=== PATIENT | male | born 1985 | race American Indian/Alaskan Native ===

== ENCOUNTER 2017-05-27 05:12 | Emergency (ER) | payer SELFPAY ==
[2017-05-27 05:35] VITALS: BP 157/109
[2017-05-27 06:30] LABS: Basophils % (Auto) 0.7 % (0.0-1.8); Eosinophils % (Auto) 0.8 % (0.0-4.3); Hematocrit 43.9 % (35.5-45.6); Hemoglobin 14.3 gm/dl (11.8-15.2); Mean Corpuscular HGB Conc 33 % (32-34); Mean Corpuscular Hemoglobin 29 pg (28-32); Mean Corpuscular Volume 90 fl (84-94); Platelet Count 185 K/mm3 (140-440); Red Cell Distribution Width 14.6 % (13.2-15.2); White Blood Count 8.5 K/mm3 (4.5-11.0)
[2017-05-27 06:49] LABS: Blood Urea Nitrogen 13 mg/dL (9-20); Calcium 8.8 mg/dL (8.4-10.2); Carbon Dioxide 24 mmol/L (22-30); Glucose 123 mg/dL (75-100)
[2017-05-27 06:50] LABS: Anion Gap 18 mmol/L; Chloride 99.3 mmol/L (98-107); Potassium 3.8 mmol/L (3.6-5.0); Sodium 137 mmol/L (137-145)
[2017-05-27] MEDS ORDERED: NORCO 5/325 PO ONE (07:19)
[2017-05-27] MEDS ORDERED: COLCRYS PO ONE (07:19)
[2017-05-27] MEDS ORDERED: TORADOL IM ONE (07:19)
[2017-05-27] MEDS ORDERED: DECADRON IM ONE (07:19)
--- NOTE | 2017-05-27 07:21 | Emergency Department Report ---
ED General Adult HPI - General Chief complaint: Extremity Problem,Nontraumatic Stated complaint: GOUT PAIN Time Seen by Provider: 05/27/17 07:09 Source: patient Mode of arrival: Wheelchair Limitations: No Limitations - History of Present Illness Initial comments: Patient comes into the ER today with complaints of right ankle and foot pain for the past one day. Patient denies any injury. States that he is sure that it is a gout flareup. Patient states that it has been approximately 2 years since his last flareup. Patient states he does not take anything on a regular basis for his gout. Does note that his father has history of gout as well. Patient denies any fever, body aches, chills. He states the pain is worse with anything touching his right ankle and foot. Patient unable to ambulate due to pain. - Related Data Previous Rx's Medication Instructions Recorded Last Taken Type Acetaminophen/Codeine [Tylenol 1 tab PO Q6H PRN #20 tab 05/27/17 Unknown Rx /Codeine # 3 tab] Colchicine [Colcrys] 0.6 mg PO BID PRN #10 tab 05/27/17 Unknown Rx Indomethacin 50 mg PO TID PRN #30 capsule 05/27/17 Unknown Rx Allergies Allergy/AdvReac Type Severity Reaction Status Date / Time No Known Allergies Allergy Verified 05/27/17 05:31 ED Review of Systems ROS: Stated complaint: GOUT PAIN Other details as noted in HPI Constitutional: denies: chills, fever Eyes: denies: eye pain, eye discharge, vision change ENT: denies: ear pain, throat pain Respiratory: denies: cough, shortness of breath, wheezing Cardiovascular: denies: chest pain, palpitations Endocrine: no symptoms reported Gastrointestinal: denies: abdominal pain, nausea, diarrhea Genitourinary: denies: urgency, dysuria Musculoskeletal: arthralgia. denies: back pain, joint swelling Skin: denies: rash, lesions Neurological: denies: headache, weakness, paresthesias Psychiatric: denies: anxiety, depression Hematological/Lymphatic: denies: easy bleeding, easy bruising ED Past Medical Hx - Past Medical History Previous Medical History?: Yes Hx Hypertension: Yes Hx Arthritis: Yes (Gout) Additional medical history: GOUT - Surgical History Past Surgical History?: No - Social History Smoking Status: Current Every Day Smoker Substance Use Type: None - Medications Home Medications: Home Medications Medication Instructions Recorded Confirmed Last Taken Type Acetaminophen/Codeine [Tylenol 1 tab PO Q6H PRN #20 tab 05/27/17 Unknown Rx /Codeine # 3 tab] Colchicine [Colcrys] 0.6 mg PO BID PRN #10 tab 05/27/17 Unknown Rx Indomethacin 50 mg PO TID PRN #30 capsule 05/27/17 Unknown Rx ED Physical Exam - General Limitations: No Limitations General appearance: alert, in no apparent distress - Head Head exam: Present: atraumatic, normocephalic - Eye Eye exam: Present: normal appearance - ENT ENT exam: Present: mucous membranes moist - Neck Neck exam: Present: normal inspection - Respiratory Respiratory exam: Present: normal lung sounds bilaterally. Absent: respiratory distress - Cardiovascular Cardiovascular Exam: Present: regular rate, normal rhythm. Absent: systolic murmur, diastolic murmur, rubs, gallop - GI/Abdominal GI/Abdominal exam: Present: soft, normal bowel sounds - Rectal Rectal exam: Present: deferred - Extremities Exam Extremities exam: Present: tenderness (right lateral ankle tenderness), normal capillary refill, joint swelling (right ankle). Absent: full ROM (Limited range of motion of right ankle secondary to pain), pedal edema, calf tenderness - Back Exam Back exam: Present: normal inspection - Neurological Exam Neurological exam: Present: alert, oriented X3, CN II-XII intact, reflexes normal. Absent: motor sensory deficit - Psychiatric Psychiatric exam: Present: normal affect, normal mood - Skin Skin exam: Present: warm, dry, intact, normal color. Absent: rash ED Course Vital Signs 05/27/17 05:31 Temperature 97.9 F Pulse Rate 74 Respiratory 22 Rate Blood Pressure 157/109 O2 Sat by Pulse 97 Oximetry ED Medical Decision Making - Lab Data Result diagrams: 05/27/17 06:11 05/27/17 06:11 Lab Results 05/27/17 05/27/17 Range/Units 06:11 06:11 WBC 8.5 (4.5-11.0) K/mm3 RBC 4.90 (3.65-5.03) M/mm3 Hgb 14.3 (11.8-15.2) gm/dl Hct 43.9 (35.5-45.6) % MCV 90 (84-94) fl MCH 29 (28-32) pg MCHC 33 (32-34) % RDW 14.6 (13.2-15.2) % Plt Count 185 (140-440) K/mm3 Lymph % (Auto) 17.6 (13.4-35.0) % Loup % (Auto) 5.5 (0.0-7.3) % Eos % (Auto) 0.8 (0.0-4.3) % Baso % (Auto) 0.7 (0.0-1.8) % Lymph # 1.5 (1.2-5.4) K/mm3 Loup # 0.5 (0.0-0.8) K/mm3 Eos # 0.1 (0.0-0.4) K/mm3 Baso # 0.1 (0.0-0.1) K/mm3 Seg Neutrophils % 75.4 H (40.0-70.0) % Seg Neutrophils # 6.5 (1.8-7.7) K/mm3 Sodium 137 (137-145) mmol/L Potassium 3.8 (3.6-5.0) mmol/L Chloride 99.3 (98-107) mmol/L Carbon Dioxide 24 (22-30) mmol/L Anion Gap 18 mmol/L BUN 13 (9-20) mg/dL Creatinine 1.0 (0.8-1.5) mg/dL Estimated GFR > 60 ml/min BUN/Creatinine Ratio 13.00 % Glucose 123 H (75-100) mg/dL Calcium 8.8 (8.4-10.2) mg/dL - Medical Decision Making Patient is nontoxic and hemodynamically stable. Based on history and physical exam, I do believe patient may be having a gout flareup in the ER today. Patient does not have physical exam consistent with any injury. Patient was given crutches in the ER to help with ambulation while inflammation subsides. Patient is in aggrement with treatment plan and is stable for discharge. Critical care attestation.: If time is entered above; I have spent that time in minutes in the direct care of this critically ill patient, excluding procedure time. ED Disposition Clinical Impression: Gout, Right ankle pain Disposition: TO HOME OR SELFCARE Is pt being admited?: No Does the pt Need Aspirin: No Condition: Good Instructions: Crutch Instructions (ED), Acute Gouty Arthritis (ED) Prescriptions: Acetaminophen/Codeine [Tylenol /Codeine # 3 tab] 1 tab PO Q6H PRN #20 tab PRN Reason: Pain Colchicine [Colcrys] 0.6 mg PO BID PRN #10 tab PRN Reason: other Indomethacin 50 mg PO TID PRN #30 capsule PRN Reason: Pain Referrals: PRIMARY CARE, [Primary Care Provider] - 3-5 Days Time of Disposition: 08:01
== END 2017-05-27 08:09 | disposition home or self-care (01) ==
LOC: ED 05:12
DX: M10.9 Gout, unspecified (principal); M25.571 Pain in right ankle and joints of right foot; I10 Essential (primary) hypertension; F17.200 Nicotine dependence, unspecified, uncomplicated
CPT/HCPCS: 36415; 80048; 85025; 96372; 99283; J1100; J1885

== ENCOUNTER 2019-10-03 18:07 | Emergency (ER) | payer SELFPAY ==
[2019-10-03 18:31] VITALS: BP 182/111
[2019-10-03] MEDS ORDERED: COLCHICINE 0.6 MG CAP PO ONE (18:32)
[2019-10-03] MEDS ORDERED: KETOROLAC 60 MG/2 ML INJ IM ONE (18:32)
[2019-10-03] MEDS ORDERED: HYDROcodone/ACETAMINOPHEN 7.5-325MG TAB PO ONE (18:32)
[2019-10-03] MEDS ORDERED: dexAMETHasone 20 MG/5 ML VIAL IM ONE (18:32)
--- NOTE | 2019-10-03 18:36 | Event Note ---
ED Screening Note Date of service: 10/03/19 Time: 18:32 ED Screening Note: 33 y/o male present to ER for left ankle pain and swelling. Has a gout flare up. This initial assessment/diagnostic orders/clinical plan/treatment(s) is/are subject to change based on patients health status, clinical progression and re- assessment by fellow clinical providers in the ED. Further treatment and workup at subsequent clinical providers discretion. Patient/guardian urged not to elope from the ED as their condition may be serious if not clinically assessed and managed. Initial orders include:
--- NOTE | 2019-10-03 20:25 | Emergency Department Report ---
ED Extremity Problem HPI - General Chief complaint: Extremity Problem,Nontraumatic Stated complaint: LFT GOUT FLARE UP/PAIN Time Seen by Provider: 10/03/19 18:30 Source: patient Mode of arrival: Wheelchair Limitations: No Limitations - History of Present Illness Initial comments: 33 y/o male present to ER for left ankle pain and swelling. Has a gout flare up. MD Complaint: extremity pain, extremity swelling Severity scale (0 -10): 10 - Related Data Previous Rx's Medication Instructions Recorded Last Taken Type Colchicine [Colcrys] 0.6 mg PO BID PRN #10 tab 05/27/17 Unknown Rx Acetaminophen/Codeine [Tylenol 1 tab PO Q6H PRN #20 tab 10/03/19 Unknown Rx /Codeine # 3 tab] Indomethacin 50 mg PO TID PRN #30 capsule 10/03/19 Unknown Rx Prednisone [predniSONE 10 mg 10 mg PO .TAPER #1 tab.ds.pk 10/03/19 Unknown Rx (6-Day Pack, 21 Tabs)] Allergies Allergy/AdvReac Type Severity Reaction Status Date / Time No Known Allergies Allergy Verified 05/27/17 05:31 ED Review of Systems ROS: Stated complaint: LFT GOUT FLARE UP/PAIN Other details as noted in HPI ED Past Medical Hx - Past Medical History Previous Medical History?: Yes Hx Hypertension: Yes Hx Arthritis: Yes (Gout) Additional medical history: GOUT - Surgical History Past Surgical History?: No - Social History Smoking Status: Current Every Day Smoker Substance Use Type: Marijuana - Medications Home Medications: Home Medications Medication Instructions Recorded Confirmed Last Taken Type Colchicine [Colcrys] 0.6 mg PO BID PRN #10 tab 05/27/17 Unknown Rx Acetaminophen/Codeine [Tylenol 1 tab PO Q6H PRN #20 tab 10/03/19 Unknown Rx /Codeine # 3 tab] Indomethacin 50 mg PO TID PRN #30 capsule 10/03/19 Unknown Rx Prednisone [predniSONE 10 mg 10 mg PO .TAPER #1 tab.ds.pk 10/03/19 Unknown Rx (6-Day Pack, 21 Tabs)] ED Physical Exam - General Limitations: No Limitations General appearance: alert, in no apparent distress - Head Head exam: Present: atraumatic, normocephalic - Respiratory Respiratory exam: Absent: respiratory distress - Expanded Lower Extremity Exam Left Ankle exam: Present: full ROM, tenderness, swelling, erythema Foot/Toe exam: Present: full ROM, tenderness, swelling. Absent: erythema Neuro vascular tendon exam: Present: no vascular compromise - Neurological Exam Neurological exam: Present: alert, oriented X3 - Psychiatric Psychiatric exam: Present: normal affect, normal mood - Skin Skin exam: Present: warm, dry, intact, normal color. Absent: rash ED Course Vital Signs 10/03/19 10/03/19 10/03/19 18:12 18:31 18:39 Temperature 99.9 F H Pulse Rate 78 Respiratory 19 18 Rate Blood Pressure 182/111 O2 Sat by Pulse 98 Oximetry Critical care attestation.: If time is entered above; I have spent that time in minutes in the direct care of this critically ill patient, excluding procedure time. ED Disposition Clinical Impression: Gout of left ankle Disposition: DC-01 TO HOME OR SELFCARE Is pt being admited?: No Does the pt Need Aspirin: No Condition: Stable Instructions: Acute Gouty Arthritis (ED) Prescriptions: Indomethacin 50 mg PO TID PRN #30 capsule PRN Reason: Pain Prednisone [predniSONE 10 mg (6-Day Pack, 21 Tabs)] 10 mg PO .TAPER #1 tab.ds.pk Acetaminophen/Codeine [Tylenol /Codeine # 3 tab] 1 tab PO Q6H PRN #20 tab PRN Reason: Pain Referrals: [facility] [Outside] - 3-5 Days Forms: Work/School Release Form(ED), Accompanied Note
== END 2019-10-03 20:25 | disposition home or self-care (01) ==
LOC: ED 18:07
DX: M10.9 Gout, unspecified (principal); F17.200 Nicotine dependence, unspecified, uncomplicated; I10 Essential (primary) hypertension; F12.10 Cannabis abuse, uncomplicated
CPT/HCPCS: 96372; 99282; J1100; J1885

== ENCOUNTER 2020-01-22 17:35 | Emergency (ER) | payer SELFPAY ==
--- NOTE | 2020-01-22 19:24 | Emergency Department Report ---
Blank Doc - Documentation Documentation: 34-year-old male that presents with right elbow pain and swelling. This initial assessment/diagnostic orders/clinical plan/treatment(s) is/are subject to change based on patient's health status, clinical progression and re- assessment by fellow clinical providers in the ED. Further treatment and workup at subsequent clinical providers discretion. Patient/guardians urged not to elope from the ED as their condition may be serious if not clinically assessed and managed. Initial orders include: 1- Patient sent to [facility] for further evaluation and treatment 2- uric acid
[2020-01-22 19:30] VITALS: BP 183/109
[2020-01-22] MEDS ORDERED: dexAMETHasone 20 MG/5 ML VIAL IM ONE (22:24)
[2020-01-22] MEDS ORDERED: KETOROLAC 30 MG/1 ML INJ IM ONE (22:24)
[2020-01-22] MEDS ORDERED: ONDANSETRON 4 MG ODT TAB PO ONE (22:25)
[2020-01-22] MEDS ORDERED: HYDROcodone/ACETAMINOPHEN 5-325 MG TAB PO ONE (22:25)
[2020-01-22] MEDS ORDERED: COLCHICINE 0.6 MG CAP PO ONE (22:25)
--- NOTE | 2020-01-22 22:53 | Emergency Department Report ---
ED Extremity Problem HPI - General Chief complaint: Extremity Problem,Nontraumatic Stated complaint: GOUT Time Seen by Provider: 01/22/20 19:23 Source: patient Mode of arrival: Ambulatory Limitations: No Limitations - History of Present Illness Initial comments: Patient is a 34-year-old -[place] male with a history of chronic gouty arthropathy and osteoarthritis who presents to the ED with complaint of acute onset persistent severe nontraumatic right elbow pain with swelling for the last 5 days. Patient states that he ate some red meat 2 days prior to the onset of the symptoms. Patient denies fall, numbness and tingling of right arm, dizziness, chest pain, shortness of breath, traumatic injury, heavy lifting, fever and chills. Patient states that the pain is consistent with his chronic gouty arthropathy which has previously affected his feet MD Complaint: extremity pain (right elbow pain), extremity swelling (Right elbow pain and swelling), joint swelling (Right elbow pain and swelling), joint paint (Right elbow joint pain and swelling) -: Sudden, days(s) (5) Location: right, upper extremity (Elbow), elbow (Right elbow pain and swelling) History of Same: Yes (Chronic gouty arthropathy) -: No myalgia, Yes arthralgia (Right elbow pain), No fever, No associated dyspnea, No associated chest pain Radiation: proximal Severity scale (0 -10): 8 Quality: aching, sharp Consistency: constant Improves with: nothing Worsens with: weight bearing, walking, exertion, palpation Associated Symptoms: denies other symptoms, arthralgias. denies: chest pain, shortness of breath, fever, myalgias, rash, other - Related Data Previous Rx's Medication Instructions Recorded Last Taken Type Colchicine [Colcrys] 0.6 mg PO BID PRN #10 tab 05/27/17 Unknown Rx Acetaminophen/Codeine [Tylenol 1 tab PO Q6H PRN #20 tab 10/03/19 Unknown Rx /Codeine # 3 tab] Colchicine 0.6 mg PO Q8H #21 capsule 01/22/20 Unknown Rx Indomethacin 50 mg PO TID PRN #30 capsule 01/22/20 Unknown Rx Prednisone [predniSONE 10 mg 10 mg PO .TAPER #1 tab.ds.pk 01/22/20 Unknown Rx (6-Day Pack, 21 Tabs)] traMADoL [Ultram] 50 mg PO Q6HR PRN #15 tablet 01/22/20 Unknown Rx Allergies Allergy/AdvReac Type Severity Reaction Status Date / Time No Known Allergies Allergy Verified 05/27/17 05:31 ED Review of Systems ROS: Stated complaint: GOUT Other details as noted in HPI Constitutional: denies: chills, fever Eyes: denies: eye pain, eye discharge, vision change ENT: denies: ear pain, throat pain Respiratory: denies: cough, shortness of breath, wheezing Cardiovascular: denies: chest pain, palpitations Endocrine: no symptoms reported Gastrointestinal: denies: abdominal pain, nausea, diarrhea Genitourinary: denies: urgency, dysuria Musculoskeletal: joint swelling (Right elbow pain and swelling), arthralgia (Right elbow pain and swelling). denies: back pain Skin: denies: rash, lesions Neurological: denies: headache, weakness, paresthesias Psychiatric: denies: anxiety, depression Hematological/Lymphatic: denies: easy bleeding, easy bruising ED Past Medical Hx - Past Medical History Hx Hypertension: Yes Hx Arthritis: Yes (Gout) Additional medical history: GOUT - Social History Smoking Status: Never Smoker Substance Use Type: None - Medications Home Medications: Home Medications Medication Instructions Recorded Confirmed Last Taken Type Colchicine [Colcrys] 0.6 mg PO BID PRN #10 tab 05/27/17 Unknown Rx Acetaminophen/Codeine [Tylenol 1 tab PO Q6H PRN #20 tab 10/03/19 Unknown Rx /Codeine # 3 tab] Colchicine 0.6 mg PO Q8H #21 capsule 01/22/20 Unknown Rx Indomethacin 50 mg PO TID PRN #30 capsule 01/22/20 Unknown Rx Prednisone [predniSONE 10 mg 10 mg PO .TAPER #1 tab.ds.pk 01/22/20 Unknown Rx (6-Day Pack, 21 Tabs)] traMADoL [Ultram] 50 mg PO Q6HR PRN #15 tablet 01/22/20 Unknown Rx ED Physical Exam - General Limitations: No Limitations General appearance: alert, in no apparent distress - Head Head exam: Present: atraumatic, normocephalic, normal inspection - Eye Eye exam: Present: normal appearance, PERRL, EOMI Pupils: Present: normal accommodation - ENT ENT exam: Present: normal exam, normal orophraynx, mucous membranes moist, TM's normal bilaterally, normal external ear exam - Neck Neck exam: Present: normal inspection, full ROM. Absent: tenderness, lymphadenopathy - Respiratory Respiratory exam: Present: normal lung sounds bilaterally. Absent: respiratory distress, wheezes, rales, chest wall tenderness, accessory muscle use, decreased breath sounds - Cardiovascular Cardiovascular Exam: Present: regular rate, normal rhythm, normal heart sounds. Absent: systolic murmur, diastolic murmur, rubs, gallop - GI/Abdominal GI/Abdominal exam: Present: soft, normal bowel sounds. Absent: distended, tenderness, rebound, hyperactive bowel sounds - Rectal Rectal exam: Present: deferred - Extremities Exam Extremities exam: Present: normal inspection, tenderness (Palpable right elbow tenderness with swelling and limited range of motion due to pain), normal capillary refill, joint swelling (Palpable swelling severely tender right elbow joint). Absent: full ROM (Limited range of motion of right elbow joint due to pain), calf tenderness - Back Exam Back exam: Present: normal inspection, full ROM. Absent: tenderness, CVA tenderness (R), muscle spasm, paraspinal tenderness, vertebral tenderness - Neurological Exam Neurological exam: Present: alert, oriented X3, CN II-XII intact, normal gait, reflexes normal - Psychiatric Psychiatric exam: Present: normal affect, normal mood - Skin Skin exam: Present: warm, dry, intact, normal color. Absent: rash ED Course Vital Signs 01/22/20 01/22/20 01/22/20 19:23 22:31 22:32 Temperature 98.7 F Pulse Rate 93 H Respiratory 18 18 18 Rate Blood Pressure 183/109 O2 Sat by Pulse 100 Oximetry ED Medical Decision Making - Medical Decision Making This is a 34-year-old male with a history of chronic gouty arthropathy and osteoarthritis who presented to the ED with acute onset persistent severe nontraumatic right elbow joint pain and swelling for 5 days. In the ED, patient is alert and oriented x3 and is not in distress but appears to be in pain. Patient was treated for pain in the ED and on reevaluation, patient's pain is well controlled with medications. Patient was discharged home on medications and advised to follow-up with his primary care physician in 7 to 10 days for reevaluation or return to the ED immediately if symptoms get worse. - Differential Diagnosis Gouty arthropathy; DJD; Muscle strain; Bursitis Critical care attestation.: If time is entered above; I have spent that time in minutes in the direct care of this critically ill patient, excluding procedure time. ED Disposition Clinical Impression: Chronic gouty arthropathy, Olecranon bursitis of right elbow Muscle strain of right upper extremity Qualifiers: Encounter type: initial encounter Qualified Code(s): S46.911A - Strain of unspecified muscle, fascia and tendon at shoulder and upper arm level, right arm, initial encounter Disposition: TO HOME OR SELFCARE Is pt being admited?: No Does the pt Need Aspirin: No Condition: Stable Instructions: Muscle Strain (ED), Elbow Bursitis (ED), Tendinitis (ED), Acute Gouty Arthritis (ED) Additional Instructions: Your symptoms are likely due to acute gouty arthropathy, tendinitis or bursitis of the right elbow joint. Therefore take pain medication with food, drink plenty of fluids and follow-up with your primary care physician in 5 to 7 days for reevaluation. Return to the ED immediately if symptoms get worse. Prescriptions: Colchicine 0.6 mg PO Q8H #21 capsule Indomethacin 50 mg PO TID PRN #30 capsule PRN Reason: Pain Prednisone [predniSONE 10 mg (6-Day Pack, 21 Tabs)] 10 mg PO .TAPER #1 tab.ds.pk traMADoL [Ultram] 50 mg PO Q6HR PRN #15 tablet PRN Reason: Pain Referrals: PRIMARY CARE,MD [Primary Care Provider] - 3-5 Days Forms: Work/School Release Form(ED) Time of Disposition: 22:56 Print Language: MALTESE
== END 2020-01-22 22:58 | disposition home or self-care (01) ==
LOC: ED 17:35
DX: S46.911A Strain of unspecified muscle, fascia and tendon at shoulder and upper arm level, right arm, initial encounter (principal); M1A.9XX0 Chronic gout, unspecified, without tophus (tophi); M70.21 Olecranon bursitis, right elbow; I10 Essential (primary) hypertension; M19.90 Unspecified osteoarthritis, unspecified site; Z79.899 Other long term (current) drug therapy; X58.XXXA Exposure to other specified factors, initial encounter; Y93.89 Activity, other specified; Y92.89 Other specified places as the place of occurrence of the external cause; Y99.8 Other external cause status
CPT/HCPCS: 36415; 84550; 96372; 99283; J1100; J1885; Q0162